=== PATIENT | female | born 1980 | race Two or more races ===

== ENCOUNTER 2016-12-08 00:53 | Emergency (ER) | payer SELFPAY ==
[~2016-12-08] VITALS: Ht 160 cm; Wt 56.7 kg
--- NOTE | 2016-12-08 01:40 | NUR ---
Patient states ate edible brownie marijuana from Marijuana dispenser about 2hrs prior to arrival. Patient c/o anxiety. denies CP,SOB,N/V
[2016-12-08] MEDS ORDERED: CYMBALTA (01:42)
[2016-12-08] MEDS ORDERED: IV NORMAL SALINE 1000 ML BAG IV ONE (01:45)
[2016-12-08 02:35] LABS: ETHANOL < 3 MG/DL (0-0)
[2016-12-08 03:53] LABS: *URINE HCG, QUAL NEGATIVE (NEGATIVE)
[2016-12-08 04:01] LABS: *AMPHETAMINE, URINE NEGATIVE (NEGATIVE); *BARBITURATE, URINE NEGATIVE (NEGATIVE); *CANNABINOID, URINE POSITIVE (NEGATIVE); *COCCAINE, URINE NEGATIVE (NEGATIVE); *OPIATE, URINE NEGATIVE (NEGATIVE); *PHENCYCLIDINE SCREEN,URINE NEGATIVE (NEGATIVE)
--- NOTE | 2016-12-08 04:30 | NUR ---
Patient states "I feel good to go home."
--- NOTE | 2016-12-08 04:30 | NUR ---
IV removed. Catheter intact and site benign. Pressure and 4x4 gauze applied to site. No bleeding noted.
--- NOTE | 2016-12-08 04:39 | NUR ---
Patient discharged to home in stable conditon with Taxi taking patient home. Written and verbal after care instructions given. Patient verbalizes understanding of instructions. Walked out of [facility] with steady gait
[2016-12-08 04:40] VITALS: BP 130/78
== END 2016-12-08 04:42 | disposition home or self-care (01) ==
LOC: ER 00:59
DX: F12.10 Cannabis abuse, uncomplicated (principal); F41.9 Anxiety disorder, unspecified
CPT/HCPCS: 36415; 80307; 84703; 93005; 96360; 99285; A4663; G0480; J7030